=== PATIENT | male | born 1980 | race African-American/Black ===

== ENCOUNTER 2017-12-29 13:11 | Emergency (ER) | payer OTHER ==
[~2017-12-29] VITALS: Ht 162.6 cm; Wt 95.7 kg
--- NOTE | ~2017-12-29 | EKG ---
[address] [place] [address] ELECTROCARDIOGRAM REPORT Name: GALILEA SANJAMIAJOSH Room #: DEP Opal#: [id number] Admission: 12/29/17 Attend Phys: Discharge: 12/29/17 Date of : 80 Report #: [id number] THIS REPORT FOR: //name// [facility] ED Test Date: 2017-12-29 Test Time: 13:24:17 Pat Name: ROXY SAN Department: Room: Gender: Shoe Associate: : 1980 Requested By: Montserrat Navarrete Order Number: [id number] MD: Jerad Borges Measurements Intervals [place] Rate: 71 P: 51 KS: 152 QRS: 28 QRSD: 108 T: 3 QT: 365 QTc: 397 Interpretive Statements Sinus rhythm RSR' in V1 or V2, probably normal variant No previous ECG available for comparison Electronically Signed On 12-30-2017 9:42:19 [employer] by Jerad Borges [email or web address] <ELECTRONICALLY SIGNED> By: Jerad Borges MD, MERGED WITH [facility] 12/30/17 [id number] Jerad Borges MD, FACC /EPI
[2017-12-29 13:44] LABS: ABSOLUTE NEUTROPHILS 4.9 thou/uL (1.4-8.2); BASOPHILS 0.6 % (0.0-2.0); EOSINOPHILS 2.5 % (0.0-3.0); HEMATOCRIT 44.8 % (42.0-52.0); HEMOGLOBIN 15.4 gm/dL (14.0-18.0); LYMPHOCYTES 24.1 % (24.0-44.0); MCH 28.6 pg (26.0-34.0); MCHC 34.4 g/dL (28.0-37.0); MCV 83.2 fL (80.0-100.0); MONOCYTES 8.1 % (1.0-8.0); PLATELET COUNT 132 thou/uL (150-400); POLYS 64.7 % (36.0-66.0); RBC 5.39 mil/uL (4.50-6.00); RDW 13.3 % (10.5-14.5); WBC 7.5 thou/uL (4.0-11.0)
[2017-12-29 13:52] LABS: ANION GAP 5 mmol/L (7-16); BUN 18 mg/dL (7-18); CALCIUM 9.3 mg/dL (8.5-10.1); CHLORIDE 106 mmol/L (98-107); CO2 25 mmol/L (21-32); GLUCOSE 92 mg/dL (74-106); POTASSIUM 4.6 mmol/L (3.5-5.1); SODIUM 136 mmol/L (136-145)
[2017-12-29 14:00] LABS: ALBUMIN 3.9 g/dL (3.4-5.0); LIPASE 142 U/L (73-393); SGOT 28 U/L (15-37); SGPT 47 U/L (30-65); TOTAL BILIRUBIN 0.4 mg/dL (<0.1-1.0); TOTAL PROTEIN 7.4 g/dL (6.4-8.2); TROPONIN-I <0.06 ng/mL (<0.06)
[2017-12-29] MEDS ORDERED: NAPROSYN500 MG PO (14:09)
[2017-12-29 14:32] VITALS: BP 121/84
== END 2017-12-29 14:34 | disposition home or self-care (01) ==
LOC: ER 13:11
PROVIDERS: Nurse Practitioner Family
DX: M94.0 Chondrocostal junction syndrome [Tietze] (principal); F17.210 Nicotine dependence, cigarettes, uncomplicated; I10 Essential (primary) hypertension